=== PATIENT | male | born 1965 | race Caucasian/White ===

== ENCOUNTER 2022-04-09 09:57 | Outpatient (CLI) | payer OTHER, SELFPAY ==
[2022-04-09 13:55] LABS: Chloride* 104 mmol/L (96-114); Potassium* 4.2 mmol/L (3.6-5.1); Sodium* 137 mmol/L (135-149)
[2022-04-09 13:58] LABS: Blood Urea Nitrogen* 11 mg/dL (7-30); Carbon Dioxide* 27 mmol/L (20-32); Cholesterol* 194 mg/dL (90-199); Estimated Glomerular Filt Rate 89 ml/min
[2022-04-09 13:59] LABS: Calcium* 9.2 mg/dL (8.4-10.6); Glucose* 109 mg/dL (60-115); HDL Cholesterol* 53 mg/dL (>=40); LDL Cholesterol Calculated 108 mg/dL (<100); Triglycerides* 163 mg/dL (40-149)
[2022-04-09 14:27] LABS: PSA Screen* 1.64 ng/mL (0.10-4.00)
== END 2022-04-09 09:58 | disposition home or self-care (01) ==
PROVIDERS: PCP Physician Assistant Medical; Visit Provider Family Medicine
DX: Z00.00 Encounter for general adult medical examination without abnormal findings (principal); I10 Essential (primary) hypertension; Z12.5 Encounter for screening for malignant neoplasm of prostate; Z13.6 Encounter for screening for cardiovascular disorders
CPT/HCPCS: 80048; 80061; 84153